=== PATIENT | male | born 1940 | race Caucasian/White ===

== ENCOUNTER → 2016-11-21 | Outpatient (CLI) | payer OTHER ==
[~2016-11-21] MED LIST: AMLODIPINE BESYL5 MG PO; ASPIRIN EC81 M1 PO; HYDROCHLOROTHIA25 MG PO; MIRTAZAPINE7.5 MG PO; SYMBICORT80 INH; TENORMIN50 MG PO; ZESTRIL40 MG PO
--- NOTE | ~2016-11-21 | XA91 ---
[facility] A Service of [facility] RADIOLOGY TEXT RESULTS PATIENT: DESTIN KOCH LOCATION: CIVR : 41 UNIT #: [id number] AGE: [address]: Tashi Gonsalez MD SEX: M ORDER DR: [id number] [facility] [address] [place], [place] [address] [id number] O MR#: [id number] Acc #: [id number] NAME: DESTIN KOCH : 1940 SEX: M STUDY DATE/TIME: 11/21/2016 9:39 UNIT: CIVR ROOM: STUDY DESCRIPTION: XA CVC Tunneled W Port Attending Physician: Tashi Gonsalez M.D. Referring Physician: Tashi Gonsalez M.D. Ordering Physician: Poonam Gonsalez M.D. Primary Care Physician: Bonnie Primary Care Physician MEDICAL IMAGING REPORT This report is preliminary unless electronic signature is present PROCEDURE Ultrasound fluoroscopically guided placement of right internal jugular venous chest port. DATE OF EXAM 11/21/2016 INDICATIONS 76-year-old male with colon cancer, who needs access for chemotherapy. The fluoro time 0.7 minutes. The reference air kerma is 2 mg. Conscious sedation was provided using 2 mg of Versed IV and 50 mcg of fentanyl IV. Approximately 45 minutes of sedation time was monitored by appropriately credentialed radiology nursing staff. 1 g of cefazolin was administered for antibiotic prophylaxis. Risks, benefits and alternatives of the procedure were discussed with the patient and informed consent was obtained. In the procedure room, a time-out was performed confirming correct patient and procedure. All elements of maximum sterile-barrier technique utilized according to guidelines appropriate for the procedure. TECHNIQUE/FINDINGS Ultrasound of the right internal jugular vein was performed. It is patent, and compressible and images saved. Next, using full standard sterile barrier technique including sterile caps, gowns, gloves, masks, drapes, 2% chlorhexidine for cutaneous antisepsis, and hand hygiene, real-time sterile ultrasound guidance was utilized with sterile probe cover and sterile gel and the right internal jugular vein was accessed using a 21-gauge micropuncture needle. Through this access, under fluoroscopic guidance, a peel-away sheath was advanced into the SVC. Next, a small incision was made below the right clavicle. A subcutaneous pocket was created. The port was placed in the pocket and tunneled STS. [facility] A Service of [facility] RADIOLOGY TEXT RESULTS PATIENT: DESTIN KOCH [facility] UNIT #: [id number] AGE: [address]: Tashi Gonsalez MD SEX: M ORDER DR: underneath the skin through the jugular dermatotomy site. The tubing was measured and cut to length and advanced through the sheath. The sheath was pealed away. The tip of the catheter is located in good position in the lower SVC and a spot image was taken. Port was flushed with heparinized saline. The port pocket was closed using 3-0 Vicryl and Dermabond. Jugular dermatotomy site was closed using Dermabond. The patient tolerated the procedure well without immediate complications. IMPRESSION Technically successful ultrasound fluoroscopically guided placement of a right internal jugular venous chest port. Dictated by... Oliver Soriano M.D. THIS IS AN ELECTRONICALLY VERIFIED REPORT Oliver Soriano M.D. at 11/22/2016 2:34 PM Tea TD: 11/21/2016 19:10 JOB #: [id number] MEDICAL IMAGING REPORT Page 1 of 1 COPY
[2016-11-21 07:35] LABS: HEMATOCRIT 32.1 % (38.0-50.0); HEMOGLOBIN 10.4 gm/dL (13.0-16.0); MEAN CELL VOLUME 91.5 FL (83-96); MEAN CORPUSCULAR HEMOGLOBIN 29.6 PG (28-34); MEAN CORPUSCULAR HGB CONC 32.3 g/dL (30-36); MEAN PLATELET VOLUME 7.7 FL (6.5-11.5); RED BLOOD COUNT 3.51 X10e (3.90-5.60); RED CELL DISTRIBUTION WIDTH 13.8 % (11.0-15.5); WHITE BLOOD COUNT 8.1 X10e3 (4.0-10.5)
[2016-11-21 07:54] LABS: PARTIAL THROMBOPLASTIN TIME 26.4 SECONDS (23.5-31.3); PROTHROMBIN TIME (PATIENT) 10.8 SECONDS (9.6-11.5)
== END | disposition home or self-care (01) ==
LOC: CIVR 07:09
PROVIDERS: Internal Medicine Hematology
DX: Z45.2 Encounter for adjustment and management of vascular access device (principal); C18.7 Malignant neoplasm of sigmoid colon
CPT/HCPCS: 36415; 76937; 77001; 85027; 85610; 85730; C1788; J0690; J1642; J2250; J3010

== ENCOUNTER → 2017-01-29 | Outpatient (CLI) | payer OTHER ==
--- NOTE | ~2017-01-29 | CT2 ---
[facility] A Service of [facility] & [facility] RADIOLOGY TEXT RESULTS PATIENT: DESTIN KOCH LOCATION: [facility] : 41 UNIT #: [id number] AGE: [address]: Tashi Gonsalez MD SEX: M ORDER DR: [id number] [facility] [address] [place], [place] [address] [id number] O MR#: [id number] [facility] #: [id number] NAME: DESTIN KOCH : 1940 SEX: M STUDY DATE/TIME: 01/29/2017 7:32 UNIT: [facility] ROOM: STUDY DESCRIPTION: CT Abd and Pelv W Cont Attending Physician: Tashi Gonsalez M.D. Referring Physician: Tashi Gonsalez M.D. Ordering Physician: Tashi Gonsalez M.D. Primary Care Physician: No Primary Care Physician MEDICAL IMAGING REPORT This report is preliminary unless electronic signature is present EXAMINATION CT abdomen and pelvis with contrast. DATE 01/29/2017 HISTORY Colon cancer. Observation for metastatic disease. Restaging. COMPARISON CT abdomen and pelvis with contrast 11/12/2016. PROCEDURE 5 mm axial images from the lung bases through the lesser trochanters after intravenous contrast administration. Enteric contrast was not administered. Sagittal and coronal reformatted images were obtained. This CT exam was performed with one or more of the following radiation dose reduction techniques: automatic exposure control, adjustment of mA and/or kV according to patient size, and iterative reconstruction. FINDINGS ABDOMEN FINDINGS: The extensive hepatic metastatic disease is redemonstrated. The dominant mass in the right hepatic lobe measures roughly 9 cm and is not thought to be significantly changed, while other nodules are slightly smaller. For example, a lesion in the left hepatic lobe measures 2.5 cm compared to 2.9 cm on previous exam. Another left hepatic lobe lesion measures 2.1 cm compared to 2.8 cm previously. Many of these liver lesions appear more necrotic or fluid density. No new liver lesions are identified. Stable right adrenal mass consistent with metastatic disease measuring about 2.8 x 1.7 cm. Left adrenal gland within normal limits. The spleen is normal. Bilateral renal cysts. Pancreas is atrophic. Surgical STS. [facility] A Service of [facility] RADIOLOGY TEXT RESULTS PATIENT: DESTIN KOCH LOCATION: [facility] : 41 UNIT #: [id number] AGE: [address]: Tashi Gonsalez MD SEX: M ORDER DR: changes of the esophagogastric junction. Diffuse gaseous distension predominately of the colon with [id number] colonic stool burden. No definite pathologically enlarged lymph nodes are identified. There is significant paucity of intraabdominal and extra-abdominal fat. There is moderate calcific atherosclerosis within the abdominal aorta and common iliac arteries. PELVIS FINDINGS: Rectal tube is in place. Concentric rectal soft tissue mass again noted, although appears slightly less prominent than on the 11/12/2016 examination. No pelvic adenopathy is seen. There is marked prostatic enlargement protruding into the urinary bladder base. Chronic-appearing compression deformity of the superior endplate of L1 is unchanged. There is new compression deformity with sclerosis of the inferior endplate of L2, and metastatic disease cannot be excluded. There is increased sclerosis of the T11 vertebral body, left eleventh rib, inferior L2 vertebral body, and multiple round sclerotic foci particularly within the right hemisacrum. These can be faintly seen on the previous CT, and could represent either osseous disease progression or simply interval response to therapy. There does appear to be a pathologic fracture left 11th rib which appears sclerotic, as well. IMPRESSION 1. Extensive hepatic metastatic disease demonstrates slight interval improvement. The dominant mass is stable while other lesions are slightly smaller, and the liver lesions appear more necrotic or liquefied. 2. Osseous sclerotic metastatic disease as described above. These lesions appear more prominent or sclerotic than on the previous CT which could represent either osseous disease progression or simply osseous response to therapy in the interval. 3. There is new mild compression deformity at the inferior endplate of L2. There is a new nondisplaced pathologic fracture of the left 11th rib near the costovertebral junction. 4. Right adrenal metastasis, unchanged. 5. The patient's rectal mass appears very slightly smaller or less thick than on the 11/04/2016 examination. The rectal tube or stent appears stable in position. 6. Moderate gaseous distension within the colon with moderate colonic stool burden. 7. CT chest performed on this same date has been dictated separately. Dictated by... Magalis Benson M.D. THIS IS AN ELECTRONICALLY VERIFIED REPORT Magalis Benson M.D. at 01/30/2017 7:[address] [facility] A Service of [facility] RADIOLOGY TEXT RESULTS PATIENT: DESTIN KOCH LOCATION: [facility] : 41 UNIT #: [id number] AGE: [address]: Tashi Gonsalez MD SEX: M ORDER DR: AYAD/tavon TD: 01/29/2017 17:17 JOB #: [id number] MEDICAL IMAGING REPORT Page 1 of 1 COPY
--- NOTE | ~2017-01-29 | CT55 ---
[facility] A Service of [facility] RADIOLOGY TEXT RESULTS PATIENT: DESTIN KOCH LOCATION: [facility] : 41 UNIT #: [id number] AGE: [address]: Tashi Gonsalez MD SEX: M ORDER DR: [id number] [facility] [address] [place], [place] [address] [id number] O MR#: [id number] [facility] #: [id number] NAME: DESTIN KOCH : 1940 SEX: M STUDY DATE/TIME: 01/29/2017 7:40 UNIT: [facility] ROOM: STUDY DESCRIPTION: CT Chest W Con Attending Physician: Tashi Gonsalez M.D. Referring Physician: Tashi Gonsalez M.D. Ordering Physician: Tashi Gonsalez M.D. Primary Care Physician: No Primary Care Physician MEDICAL IMAGING REPORT This report is preliminary unless electronic signature is present EXAM CT chest with contrast DATE 01/29/2017 HISTORY Metastatic colon cancer. Observation metastatic disease. Restaging. COMPARISON PET/CT 11/12/2016. CTA chest 10/24/2014. PROCEDURE 5 mm axial images from the thoracic inlet through the upper abdomen after IV contrast administration. Sagittal and coronal reformatted images were obtained. This CT exam was performed with one or more of the following radiation dose reduction techniques: automatic control, adjustment of mA and/or kV according to patient size, and iterative reconstruction. FINDINGS Biapical pleural parenchymal scarring unchanged. Calcific granulomatous changes in the bilateral upper lobes. No new or suspicious pulmonary nodule. Advanced emphysema. Benign calcified granuloma in the left lower lobe. Benign calcified granuloma in the right lower lobe. No pathologically enlarged lymph nodes. No pericardial effusion or pleural effusion. Ascending thoracic aortic ectasia 3.8 cm, descending thoracic aortic ectasia, 2.8 cm, unchanged. Right chest wall Ersx-u-Ckibgnud extends to the SVC. Normal heart size. Surgical change of the esophagogastric junction. Osseous sclerotic metastatic disease has progressed, particularly within the T7 vertebral body where there is new or subacute appearing moderate to severe compression deformity without canal compromise. Osseous sclerosis STS. [facility] A Service of [facility] & [facility] RADIOLOGY TEXT RESULTS PATIENT: DESTIN KOCH LOCATION: [facility] #: [id number] : 41 UNIT #: [id number] AGE: [address]: Tashi Gonsalez MD SEX: M ORDER DR: within the T11 vertebral body appears increased, and there is mild compression deformity at superior endplate. There is chronic-appearing deformity of the superior endplate of T12. There is compression deformity of the L2 vertebral body with osseous sclerosis along its inferior margin. There is new pathologic fracture of the left eleventh rib near the costovertebral junction with increased lordosis since the previous exam. Osteosclerosis within T3 has increased. Increased sclerosis within the left ninth rib. IMPRESSION 1. Osteosclerotic metastatic disease within the thoracic spine as described above. Several preexisting lesions appear more sclerotic, which may simply represent some interval response to therapy, or potential progression of metastatic disease. There is, however, new or increased osteosclerosis within the T7 vertebral body suggesting osseous disease progression, and there is moderate to marked severe compression deformity at this level without canal compromise. There is more mild compression deformity of the superior endplates of T11 and T12. There is compression deformity of the inferior endplate of L2. 2. No suspicious pulmonary nodules or pathologic adenopathy in the chest. 3. Severe emphysema with scattered areas of benign granulomatous change and bilateral upper lobe scarring. 4. Stable ectasia of the thoracic aorta. 5. CT abdomen and pelvis performed on this same date has been dictated separately. Dictated by... Magalis Benson M.D. THIS IS AN ELECTRONICALLY VERIFIED REPORT Magalis Benson M.D. at 01/30/2017 7:11 AM AYAD/edwin TD: 01/29/2017 17:50 JOB #: [id number] MEDICAL IMAGING REPORT Page 1 of 1 COPY
[2017-01-29 07:55] LABS: POC - CREATININE 0.87 mg/dL (0.64-1.27); POC - GFR >60.0 mL/min (>60)
== END | disposition home or self-care (01) ==
LOC: CCAT 07:21
PROVIDERS: Internal Medicine Hematology
DX: C79.51 Secondary malignant neoplasm of bone (principal); C18.7 Malignant neoplasm of sigmoid colon; K90.9 Intestinal malabsorption, unspecified; D50.9 Iron deficiency anemia, unspecified; E86.0 Dehydration; J43.9 Emphysema, unspecified; I77.810 Thoracic aortic ectasia
CPT/HCPCS: 71260; 74177; 82565; J1642; Q9967